=== PATIENT | female | born 2000 | race Caucasian/White ===

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

== ENCOUNTER 2020-02-02 18:36 | Emergency (ER) | payer OTHER ==
[~2020-02-02] VITALS: Ht 162.6 cm; Wt 87.1 kg
[2020-02-02 18:55] VITALS: Ht 162.6 cm; Wt 87.1 kg
[2020-02-02 20:30] VITALS: BP 117/68
== END 2020-02-02 20:30 | disposition home or self-care (01) ==
LOC: ED 18:36
DX: U07.1 COVID-19 (principal); J12.89 Other viral pneumonia
CPT/HCPCS: 87804; Q0092; U0003-CS